=== PATIENT | male | born 1965 | race Two or more races ===

== ENCOUNTER 2017-03-12 10:50 | Inpatient (IN) | payer OTHER, MEDICAID ==
[~2017-03-12] VITALS: Ht 167.6 cm; Wt 90.9 kg
[2017-03-12 11:27] LABS: BASOPHIL % 0.6 % (0-2); PLATELET COUNT 188 x10^3mcL (130-400)
[2017-03-12 11:30] LABS: RED CELL DISTRIBUTION WIDTH 15.6 % (11.5-14.5)
--- NOTE | 2017-03-12 11:34 | NUR ---
PT PRESENTED TO ED WITH C/O TESTICULAR PAIN X 4 DAYS. PT DENIES PAIN WHEN VOIDING. PT IS AAOX4, BREATHING EVEN AND UNLABORED. PT IN NO ACUTE DISTRESS.
--- NOTE | 2017-03-12 11:35 | NUR ---
US AT BEDSIDE
[2017-03-12 11:36] LABS: CALCIUM 8.3 mg/dL (8.5-10.1); CARBON DIOXIDE 27.1 mmol/L (21-32); CREATININE SERUM 2.3 mg/dL (0.7-1.3); POTASSIUM SERUM 3.4 mmol/L (3.5-5.1)
[2017-03-12 12:04] LABS: AMPHETAMINE QUAL UR NONE DETECTED (NEG <=1000)
--- NOTE | 2017-03-12 12:09 | NUR ---
PT RESTING, IS AAOX4. PT IS IN NO ACUTE DISTRESS.
[2017-03-12 12:21] LABS: microscopic required? YES
[2017-03-12 12:22] LABS: urine erythrocyte 2+ (NEGATIVE)
--- NOTE | 2017-03-12 13:09 | NUR ---
PT RESTING, PT REPORTS CONTINUES TO EXPERIENCE PAIN. PT IN NO ACUTE DISTRESS. PT REPORTS PAIN 10/10.
--- NOTE | 2017-03-12 13:12 | NUR ---
PT REQUESTED PAIN MED, NOTIFIED DR. BUCK.
--- NOTE | 2017-03-12 13:28 | NUR ---
GAVE PT URINAL TO URINATE.
--- NOTE | 2017-03-12 14:14 | NUR ---
PT RESTING, IN NO ACUTE DISTRESS.
--- NOTE | 2017-03-12 14:24 | NUR ---
X-RAY AT BEDSIDE.
--- NOTE | 2017-03-12 14:31 | NUR ---
GAVE REPORT TO DAVID LAWRENCE AT X [phone]
--- NOTE | 2017-03-12 14:40 | NUR ---
RECEIVED PT FROM [facility] [employer], CAME IN DUE TO TESTICULAR PAIN X2 WEEKS. AAOX4. C/O DIZZINESS. NO SOB NOTED. DENIES CHEST PAIN/PRESSURE, NSR ON THE MONITOR. DENIES ABDOMINAL DISCOMFORT AT THIS TIME. ABDOMEN IS MILDLY DISTENDED BUT SOFT. C/O BURNING SENSATION ON HIS PELVIC AREA, LEFT TESTICLE AND LEFT ABDOMEN ON URINATION. SIDE RAILS UPX2. CALL LIGHT ON REACH. ENDORSED
--- NOTE | 2017-03-12 14:45 | NUR ---
DR. ANTONIO AT [facility]URSING STATION NOTIFIED OF Pt. BP 160/104, AWAITING ORDERS.
[2017-03-12 14:52] VITALS: BP 168/110
[2017-03-12 15:02] VITALS: Ht 167.6 cm; Wt 90.9 kg
[2017-03-12 15:08] LABS: AMYLASE 97 U/L (25-115); CHOLESTEROL 143 mg/dL (<200); LIPASE 175 IU/L (73-393); MAGNESIUM 1.6 mg/dL (1.8-2.4); PHOSPHOROUS 2.7 mg/dL (2.5-4.9)
[2017-03-12 15:11] LABS: CHOLESTEROL/HDL RATIO 8.4; HDL CHOLESTEROL 17 mg/dL (40-60); TRIGLYCERIDES 659 mg/dL (<150)
[2017-03-12 15:13] LABS: T3 TOTAL 1.34 ng/mL
--- NOTE | 2017-03-12 15:30 | NUR ---
Pt. ACCIDENTALLY PULLED OUT IV AT LEFT AC CATH INTACT. NEW IV LINE STARTED AT RIGHT FOREARM 22G WITH GOOD BLOOD RETURN AND Pt. TOLERATED WELL, RESUMED IVF.
[2017-03-12 15:43] LABS: FREE T4 0.89 ng/dL (0.76-1.46); FREE THYROXINE INDEX 2.1 ug/dL (1.4-4.5); T4(THYROXINE) 6.8 ug/dL (4.7-13.3)
[2017-03-12] MEDS ORDERED: TAMSULOSIN HYD0.4 M1 PO (16:12)
[2017-03-12] MEDS ORDERED: DESCOVY 200-251 EACH PO (16:12)
[2017-03-12] MEDS ORDERED: PREZCOBIX1 TAB PO (16:12)
[2017-03-12] MEDS ORDERED: FLUOXETINE HYDR20 M2 PO (16:12)
[2017-03-12] MEDS ORDERED: BACTRIM DS1 TAB PO (16:12)
--- NOTE | 2017-03-12 16:30 | NUR ---
DR. ANTONIO NOTIFIED DUE TO Pt. WITH ELEVATED BP AND PER MD WILL ORDER FLOMAX FOR ELEVATED BP AWAITING ORDERS.
[2017-03-12 16:57] VITALS: BP 160/104
--- NOTE | 2017-03-12 17:20 | NUR ---
Pt. C/O LEFT SCROTAL PAIN 10/10 SCALE. LEFT TESTICLE WITH SLIGHT SWELLING NOTED. SKIN COLOR PINK/GONZALEZ. Pt. REPORTED PAIN RADIATES FROM LEFT TESTICLE TO LOWER ABDOMEN. MORPHINE IVP ADMINISTERED WILL CONTINUE TO MONITOR.
--- NOTE | 2017-03-12 17:41 | NUR ---
DR. ANTONIO NOTIFIED MAGNESIUM LEVEL AT 1.6
--- NOTE | 2017-03-12 18:21 | NUR ---
Pt. AAOX4, RESPIRATIONS EVEN AND UNLABORED. VERBALIZED RELIEF POST MORPHINE ADMINISTRATION. TELE IN PLACE. IVF RUNNING TO IV AT [facility] PATENT AND INTACT. LEFT TESTICLE STILL WITH SWELLING NOTED. BED LOW/LOCKED. CALL LIGHT IN REACH.
--- NOTE | 2017-03-12 18:33 | NUR ---
RECHECKED Pt. BP 178/114 MAP 135 HR 79. Pt. DENIES BOATENG/CHEST PAIN/PRESSURE. DR. ANTONIO AND DR. SCOTT NOTIFIED. AWAITING ORDERS.
[2017-03-12 18:35] VITALS: BP 178/114
--- NOTE | 2017-03-12 18:37 | NUR ---
Pt. SALINE LOCKED AND LEFT FOR CT SCAN.
--- NOTE | 2017-03-12 18:59 | NUR ---
Pt. RETURNED FROM CT SCAN NO DISTRESS NOTED, RESUMED IVF.
--- NOTE | 2017-03-12 19:11 | NUR ---
ADMINISTERED APRESOLINE SLOW IVP PER EMAR, Pt. TOLERATED WELL, DENIES CHEST PAIN/PRESSURE AND ASYMPTOMATIC.
--- NOTE | 2017-03-12 20:00 | NUR ---
RECEIVED PT IN BED, RESTING QUIETLY. ALERT AND ORIENTED. DENIES HEADACHE/DIZZINESS. RESP. EVEN AND UNLABORED. ON ROOM AIR, NO DISTRESS NOTED. SR ON THE MONITOR, DENIES CP OR PRESSURE. DENIES ANY DISCOMFORT AT THIS TIME. IVF, NS AT 100ML/HR, INTACT AND INFUSING VIA LFA, SITE CLEAR. LT SCROTUM SWELLING, VOIDING FREELY. AMBULATORY. CALL LIGHT WITHIN REACH. WILL CONTINUE TO MONITOR.
[2017-03-12 20:36] VITALS: BP 135/79
--- NOTE | 2017-03-13 00:03 | NUR ---
NO COMPLAINTS NOTED AT THIS TIME. AFEBRILE AND VITAL SIGNS STABLE. IVF INTACT AND INFUSING. SITE CLEAR. DOOZING OFF AND ON. WILL CONTINUE TO MONITOR.
--- NOTE | 2017-03-13 03:27 | NUR ---
ASLEEP, EASILY AROUSABLE. NO DISTRESS NOTED. WILL CONTINUE TO MONITOR.
[2017-03-13 05:33] VITALS: BP 141/85
[2017-03-13 06:13] LABS: BASOPHIL % 0.5 % (0-2); PLATELET COUNT 168 x10^3mcL (130-400)
[2017-03-13 06:21] LABS: CALCIUM 7.9 mg/dL (8.5-10.1); CARBON DIOXIDE 22.7 mmol/L (21-32); CREATININE SERUM 2.1 mg/dL (0.7-1.3); MAGNESIUM 2.3 mg/dL (1.8-2.4); PHOSPHOROUS 3.8 mg/dL (2.5-4.9); POTASSIUM SERUM 3.7 mmol/L (3.5-5.1)
--- NOTE | 2017-03-13 06:25 | NUR ---
NO COMPLAINTS NOTED. SLEPT MOST OF THE NOC. RESP. EVEN AND UNLABORED. NO DISTRESS NOTED. AFEBRILE AND VITAL SIGNS STABLE. REMAINS SR ON THE MONITOR, DENIES CHEST PAIN OR ANY DISCOMFORT. IVF INTACT AND INFUSING WELL, SITE CLEAR. KEPT COMFORTABLE. WILL ENDORSE TO INCOMING NURSE.
[2017-03-13 06:34] LABS: RED CELL DISTRIBUTION WIDTH 15.9 % (11.5-14.5)
--- NOTE | 2017-03-13 08:00 | NUR ---
AAO TIMES 4. TELE # 6 SR. VS'S STABLE. NO SOB. LUNGS CTA. O2 SAT ON RA 98%. BS'S ACTIVE TIMES 4. FOX STRONG. IV SITE LFA CDI. TESTICLES SWOLLEN MODERATELY, LEFT TESTICLE > THAN RIGHT. I ELEVATED THEM ON A ROLLED UP TOWEL IN A PILLOW CASE AND TOLD PT TO KEEP THEM ELEVATED MUCH POSSIBLE. PT C/O HEADACHE, GAVE TYLENOL 650 MG PO AT 0749. PLEASANT, COOPERATIVE.
[2017-03-13 08:46] VITALS: BP 154/99
[2017-03-13 12:02] VITALS: BP 144/91
[2017-03-13 12:37] LABS: RED BLOOD CELLS 3.17 M/mm3 (4.52-5.90)
[2017-03-13 12:42] LABS: IRON 69 ug/dL (65-170)
[2017-03-13 12:49] LABS: TOTAL IRON BINDING CAPACITY 186 ug/dL (250-450)
[2017-03-13 17:22] VITALS: BP 124/85
--- NOTE | 2017-03-13 17:49 | NUR ---
AAO TIMES 4. NO C/O PAIN. TESTICLES/SCROTUM ELEVATED ON ROLLED TOWEL IN PILLOW CASE. NO C/O PAIN. NO SOB. IV SITE CDI. COOPERATIVE.
--- NOTE | 2017-03-13 20:00 | NUR ---
PT A/A/O X4. DENIES DIZZINESS AND HEADACHE. BREATH SOUNDS CLEAR. BREATHING EVEN AND UNLABORED ON ROOM AIR. DENIES CHEST PAIN AND PRESSURE. BOWEL SOUNDS ACTIVE. NO C/O N/V AND ABD PAIN. LEFT SCROTUM SWELLING NOTED. NO C/O TESTICULAR PAIN THUS FAR. IV INTACT ON THE LEFT FOREARM INFUSING WITH NS AT 100 ML/HR. MADE PT COMFORTABLE. PLACED CALL LIGHT WITH IN REACH. WILL CONTINUE TO MONITOR.
[2017-03-13 21:30] VITALS: BP 147/97
--- NOTE | 2017-03-13 21:48 | NUR ---
DR. BLUM NOTIFIED OF BLOOD PRESSURE OF 147/97. NO NEW ORDERED GIVEN. WILL CONTINUE TO MONITOR.
--- NOTE | 2017-03-14 01:23 | NUR ---
PT RESTING WITH EYES CLOSED. NO DISTRESS AND DISCOMFORT NOTED. WILL CONTINUE TO MONITOR.
--- NOTE | 2017-03-14 05:09 | NUR ---
PT RESTING WITH EYES CLOSED. EASILY AROUSABLE WITH VERBAL STIMULI. NO C/O TESTICULAR PAIN AND HEADACHE THUS FAR. IV INTACT AND INFUSING ORDERED. WILL ENDORSE TO THE AM NURSE ACCORDINGLY.
[2017-03-14 05:58] VITALS: BP 154/94
[2017-03-14 06:26] LABS: BASOPHIL % 0.4 % (0-2); PLATELET COUNT 170 x10^3mcL (130-400)
[2017-03-14 06:51] LABS: CALCIUM 7.6 mg/dL (8.5-10.1); CREATININE SERUM 2.1 mg/dL (0.7-1.3)
--- NOTE | 2017-03-14 08:00 | NUR ---
AAO TIMES 4. TELE # 26 SB TO SR. VS'S STABLE. NO SOB. BS'S ACTIVE TIMES 4. NO C/O PAIN. PERIPHERAL PULSES PALPABLE. NO EDEMA BLE. HAS MILD SCROTAL EDEMA, ELEVATED ON ROLLED UP TOWEL IN PILLOWCASE. IV SITE CDI. COOPERATIVE. MEDICAL ROUNDS WERE DONE AT [address] GAFFNEY AND THE MEDICINE TEAM. THE PLAN FOR TODAY IS TO SEND HIM HOME AND FOLLOW DR [facility] AT [facility].
[2017-03-14 08:47] VITALS: BP 138/91
[2017-03-14] MEDS ORDERED: LEVOFLOXACIN500 M1 PO (11:57)
[2017-03-14] MEDS ORDERED: LAC PO (12:00)
[2017-03-14] MEDS ORDERED: THERA TABS1 TAB PO (12:01)
[2017-03-14] MEDS ORDERED: PREZCOBIX1 TAB PO (12:04)
[2017-03-14] MEDS ORDERED: DESCOVY 200-251 EACH PO (12:05)
[2017-03-14] MEDS ORDERED: FLUOXETINE HYDR20 M2 PO (12:07)
[2017-03-14] MEDS ORDERED: ZES10 PO (12:08)
[2017-03-14] MEDS ORDERED: BACTRIM DS1 TAB PO (12:19)
[2017-03-14] MEDS ORDERED: TAMSULOSIN HYD0.4 M1 PO (12:20)
[2017-03-14 12:46] VITALS: BP 144/95
[2017-03-14 13:03] VITALS: BP 144/95
--- NOTE | 2017-03-14 13:52 | NUR ---
DR HOLLOWAY AWARE OF BP OF 144/95.
[2017-03-14] MEDS ORDERED: LIPI20 PO (14:17)
--- NOTE | 2017-03-14 15:06 | NUR ---
PT ULTRA SOUND KIDNEY IS COMPLETE, PT WOULD LIKE TO STAY TO OBTAIN RESULTS PRIOR TO LEAVING. I GAVE PT DISCHARGE INSTRUCTIONS. HIS IV WAS DC'D TO [facility] INTACT. PT VERBALIZED "I UNDERSTAND" TO ALL INSTRUCTIONS.
== END 2017-03-14 15:13 | disposition home or self-care (01) | DRG 727 ==
LOC: ED 10:50 → DU 13:35
PROVIDERS: Emergency Medicine; ADMIT Family Medicine
DX: N45.2 Orchitis (principal); N17.0 Acute kidney failure with tubular necrosis; E87.1 Hypo-osmolality and hyponatremia; E87.6 Hypokalemia; E83.51 Hypocalcemia; D64.9 Anemia, unspecified; Z68.32 Body mass index [BMI] 32.0-32.9, adult; Z85.828 Personal history of other malignant neoplasm of skin
CPT/HCPCS: 82962; 83880; 84439; J0360; J1956; J2270; J3475; J7030; Q0092

== ENCOUNTER 2017-04-30 18:39 | Inpatient (IN) | payer OTHER, MEDICAID ==
[~2017-04-30] VITALS: Ht 167.6 cm; Wt 98.3 kg
[~2017-04-30 18:39] MED LIST: BACTRIM DS1 TAB PO; DESCOVY 200-251 EACH PO; FLUOXETINE HYDR20 M2 PO; LAC PO; LEVOFLOXACIN500 M1 PO; LIPI20 PO; PREZCOBIX1 TAB PO; TAMSULOSIN HYD0.4 M1 PO; THERA TABS1 TAB PO; ZES10 PO
[2017-04-30 20:32] LABS: BASOPHIL % 0.5 % (0-2); PLATELET COUNT 239 x10^3mcL (130-400); RED CELL DISTRIBUTION WIDTH 14.4 % (11.5-14.5)
[2017-04-30 20:49] LABS: BILIRUBIN TOTAL 0.31 mg/dL (0.20-1.00); CALCIUM 7.9 mg/dL (8.5-10.1); CARBON DIOXIDE 21.5 mmol/L (21-32)
[2017-04-30 20:51] LABS: UA SPECIFIC GRAVITY 1.025 (1.005-1.035); microscopic required? YES; urine erythrocyte 1+ (NEGATIVE)
[2017-04-30 20:58] LABS: ALBUMIN 2.9 g/dL (3.4-5.0); TOTAL PROTEIN, SERUM 8.7 g/dL (6.4-8.2)
[2017-04-30 21:12] LABS: POTASSIUM SERUM 5.8 mmol/L (3.5-5.1)
[2017-04-30 21:17] LABS: CK-MB < 0.5 ng/mL (0-3.6); CREATINE KINASE 103 U/L (39-308)
[2017-04-30] MEDS ORDERED: METFORMIN850 M1 PO (21:46)
[2017-04-30] MEDS ORDERED: LOSARTAN POTASS25 M1 PO (21:47)
[2017-04-30 22:11] VITALS: BP 124/71
[2017-04-30 22:32] LABS: MAGNESIUM 2.1 mg/dL (1.8-2.4); PHOSPHOROUS 4.5 mg/dL (2.5-4.9)
[2017-04-30 22:43] LABS: T3 TOTAL 1.15 ng/mL
[2017-04-30 22:45] LABS: FREE T4 0.85 ng/dL (0.76-1.46); FREE THYROXINE INDEX 2.3 ug/dL (1.4-4.5); T4(THYROXINE) 8.2 ug/dL (4.7-13.3)
[2017-05-01 07:07] LABS: BASOPHIL % 0.3 % (0-2); PLATELET COUNT 194 x10^3mcL (130-400); RED CELL DISTRIBUTION WIDTH 14.3 % (11.5-14.5)
[2017-05-01 07:09] LABS: CALCIUM 7.9 mg/dL (8.5-10.1); CARBON DIOXIDE 20.3 mmol/L (21-32); CREATININE SERUM 3.7 mg/dL (0.7-1.3); POTASSIUM SERUM 4.9 mmol/L (3.5-5.1)
[2017-05-01 08:28] VITALS: BP 131/72
[2017-05-01 11:39] VITALS: BP 110/56
[2017-05-01 13:24] LABS: CHOLESTEROL/HDL RATIO 5.4
[2017-05-01 16:18] VITALS: BP 120/63
[2017-05-01 21:20] VITALS: BP 115/70
[2017-05-02 04:44] VITALS: BP 117/76
[2017-05-02 06:20] LABS: BASOPHIL % 0.5 % (0-2); PLATELET COUNT 201 x10^3mcL (130-400); RED CELL DISTRIBUTION WIDTH 14.5 % (11.5-14.5)
[2017-05-02] MEDS ORDERED: CLINDAMYCIN300 M1 PO (06:27)
[2017-05-02] MEDS ORDERED: TRE400 PO (06:28)
[2017-05-02] MEDS ORDERED: BD LACTINEX1.4 MG PO (06:29)
[2017-05-02 06:35] LABS: CALCIUM 7.8 mg/dL (8.5-10.1); CARBON DIOXIDE 23.6 mmol/L (21-32); CREATININE SERUM 2.8 mg/dL (0.7-1.3); PHOSPHOROUS 3.8 mg/dL (2.5-4.9); POTASSIUM SERUM 4.3 mmol/L (3.5-5.1)
[2017-05-02 09:26] VITALS: BP 134/80
[2017-05-02 12:14] VITALS: BP 125/79
[2017-05-02 13:04] VITALS: BP 134/80
[2017-05-02] MEDS ORDERED: CLEOCIN HCL300 MG PO (13:15)
== END 2017-05-02 14:05 | disposition home or self-care (01) | DRG 602 ==
LOC: ED 18:39 → DU 21:17
PROVIDERS: Emergency Medicine; ADMIT Family Medicine
DX: L03.116 Cellulitis of left lower limb (principal); B20 Human immunodeficiency virus [HIV] disease; N17.0 Acute kidney failure with tubular necrosis; D68.69 Other thrombophilia; E87.1 Hypo-osmolality and hyponatremia; E44.0 Moderate protein-calorie malnutrition; E11.51 Type 2 diabetes mellitus with diabetic peripheral angiopathy without gangrene; E11.42 Type 2 diabetes mellitus with diabetic polyneuropathy; E87.5 Hyperkalemia; I10 Essential (primary) hypertension; E05.90 Thyrotoxicosis, unspecified without thyrotoxic crisis or storm; R80.9 Proteinuria, unspecified; F32.9 Major depressive disorder, single episode, unspecified; N40.0 Benign prostatic hyperplasia without lower urinary tract symptoms; D63.8 Anemia in other chronic diseases classified elsewhere; E66.9 Obesity, unspecified; Z68.32 Body mass index [BMI] 32.0-32.9, adult; Z79.84 Long term (current) use of oral hypoglycemic drugs
CPT/HCPCS: 36600; 82962; 83880; 84439; 90658; J0690; J1644; J2270; J3490; J7030; Q0092

== ENCOUNTER 2017-05-17 21:21 | Inpatient (IN) | payer OTHER, MEDICAID ==
[~2017-05-17] VITALS: Ht 167.6 cm; Wt 87.5 kg
[~2017-05-17 21:21] MED LIST changes: +BD LACTINEX1.4 MG PO; +CLEOCIN HCL300 MG PO; +CLINDAMYCIN300 M1 PO; +LOSARTAN POTASS25 M1 PO; +METFORMIN850 M1 PO; +TRE400 PO
[2017-05-17 22:24] LABS: BASOPHIL % 0.5 % (0-2); PLATELET COUNT 212 x10^3mcL (130-400); RED CELL DISTRIBUTION WIDTH 14.4 % (11.5-14.5)
[2017-05-17 22:26] LABS: microscopic required? YES; urine erythrocyte 2+ (NEGATIVE)
[2017-05-17 22:46] LABS: BILIRUBIN TOTAL 0.25 mg/dL (0.20-1.00); CALCIUM 7.7 mg/dL (8.5-10.1); CARBON DIOXIDE 17.2 mmol/L (21-32); POTASSIUM SERUM 4.4 mmol/L (3.5-5.1); TOTAL PROTEIN, SERUM 7.6 g/dL (6.4-8.2)
[2017-05-17 22:50] LABS: ALBUMIN 2.1 g/dL (3.4-5.0)
[2017-05-17 22:51] LABS: CREATININE SERUM 4.7 mg/dL (0.7-1.3)
[2017-05-17] MEDS ORDERED: NOR10 PO (23:30)
[2017-05-17] MEDS ORDERED: BACTRIM DS1 TAB PO (23:30)
[2017-05-18 02:13] LABS: T3 TOTAL 0.64 ng/mL
[2017-05-18 02:15] LABS: CHOLESTEROL/HDL RATIO 8.3
[2017-05-18 02:22] VITALS: BP 113/73
[2017-05-18 02:26] LABS: FREE T4 1.06 ng/dL (0.76-1.46); T4(THYROXINE) 5.8 ug/dL (4.7-13.3)
[2017-05-18 05:05] VITALS: BP 100/59
[2017-05-18 07:24] LABS: BASOPHIL % 0.6 % (0-2); PLATELET COUNT 168 x10^3mcL (130-400)
[2017-05-18 07:26] LABS: RED CELL DISTRIBUTION WIDTH 15.1 % (11.5-14.5)
[2017-05-18 07:34] LABS: CALCIUM 7.1 mg/dL (8.5-10.1); CARBON DIOXIDE 13.7 mmol/L (21-32); POTASSIUM SERUM 4.2 mmol/L (3.5-5.1)
[2017-05-18 07:35] LABS: CREATININE SERUM 4.3 mg/dL (0.7-1.3)
[2017-05-18 09:16] VITALS: BP 110/72
[2017-05-18 11:30] VITALS: BP 102/59
[2017-05-18 17:07] VITALS: BP 103/71
[2017-05-18 17:13] VITALS: Ht 167.6 cm; Wt 87.5 kg
[2017-05-18 21:15] VITALS: BP 96/60
[2017-05-19 05:22] VITALS: BP 96/60
[2017-05-19 09:16] LABS: PLATELET COUNT 147 x10^3mcL (130-400)
[2017-05-19 09:19] VITALS: BP 94/58
[2017-05-19 09:20] LABS: RED CELL DISTRIBUTION WIDTH 15.3 % (11.5-14.5)
[2017-05-19 09:24] LABS: CALCIUM 7.4 mg/dL (8.5-10.1); CARBON DIOXIDE 13.9 mmol/L (21-32); MAGNESIUM 2.1 mg/dL (1.8-2.4); PHOSPHOROUS 5.9 mg/dL (2.5-4.9); POTASSIUM SERUM 4.1 mmol/L (3.5-5.1)
[2017-05-19 09:27] LABS: CREATININE SERUM 4.4 mg/dL (0.7-1.3)
[2017-05-19 12:07] LABS: BAND NEUTROPHIL 24 % (0-10); BASOPHIL 0 % (0-2); MONOCYTE 1 % (0-7); PLATELET MORPHOLOGY PLATELETS NORMAL; SEGMENTED NEUTROPHILS 65 % (37-75)
[2017-05-19 12:08] LABS: rbc morphology (normal/abnorm) ABNORMAL (NORMAL)
[2017-05-19 13:38] VITALS: BP 99/57
[2017-05-19 18:27] VITALS: BP 111/63
[2017-05-19 20:27] VITALS: BP 103/52
[2017-05-20 05:47] VITALS: BP 101/61
[2017-05-20 06:23] LABS: BASOPHIL % 0.5 % (0-2); PLATELET COUNT 147 x10^3mcL (130-400)
[2017-05-20 06:42] LABS: CALCIUM 7.2 mg/dL (8.5-10.1); CARBON DIOXIDE 14.9 mmol/L (21-32); MAGNESIUM 1.9 mg/dL (1.8-2.4); PHOSPHOROUS 5.5 mg/dL (2.5-4.9); POTASSIUM SERUM 4.5 mmol/L (3.5-5.1)
[2017-05-20 06:52] LABS: CREATININE SERUM 4.8 mg/dL (0.7-1.3)
[2017-05-20 06:56] LABS: RED CELL DISTRIBUTION WIDTH 15.2 % (11.5-14.5)
[2017-05-20 09:21] VITALS: BP 104/64
[2017-05-20 14:03] VITALS: BP 97/59
[2017-05-20 16:10] VITALS: BP 111/53
[2017-05-20 17:32] VITALS: BP 111/53
[2017-05-20 22:25] VITALS: BP 100/69
[2017-05-21 05:06] VITALS: BP 98/60
[2017-05-21 08:00] VITALS: BP 110/70
[2017-05-21 10:27] VITALS: BP 110/70
[2017-05-21 10:31] LABS: CALCIUM 7.5 mg/dL (8.5-10.1); CARBON DIOXIDE 17.3 mmol/L (21-32); MAGNESIUM 1.7 mg/dL (1.8-2.4); PHOSPHOROUS 4.4 mg/dL (2.5-4.9)
[2017-05-21 10:35] LABS: BASOPHIL % 0.2 % (0-2); PLATELET COUNT 161 x10^3mcL (130-400)
[2017-05-21 10:36] LABS: CREATININE SERUM 4.6 mg/dL (0.7-1.3)
[2017-05-21 10:40] LABS: RED CELL DISTRIBUTION WIDTH 15.8 % (11.5-14.5)
[2017-05-21 11:00] LABS: schistocyte (helmet cell) 2+
[2017-05-21 11:01] LABS: rbc morphology (normal/abnorm) ABNORMAL (NORMAL)
[2017-05-21 14:00] VITALS: BP 112/64
[2017-05-21 16:08] LABS: PLATELET COUNT 165 x10^3mcL (130-400)
[2017-05-21 16:29] LABS: RED CELL DISTRIBUTION WIDTH 15.6 % (11.5-14.5)
[2017-05-21 16:58] LABS: BAND NEUTROPHIL 13 % (0-10); BASOPHIL 0 % (0-2); MONOCYTE 4 % (0-7); SEGMENTED NEUTROPHILS 70 % (37-75)
[2017-05-21 17:01] LABS: rbc morphology (normal/abnorm) ABNORMAL (NORMAL); target cell (codocyte) 2+
[2017-05-21 17:02] LABS: PLATELET MORPHOLOGY PLATELETS NORMAL
[2017-05-21 18:28] VITALS: BP 109/70
[2017-05-21 21:04] VITALS: BP 141/64
[2017-05-22 06:20] VITALS: BP 111/63
[2017-05-22 06:50] LABS: BASOPHIL % 0.1 % (0-2); PLATELET COUNT 177 x10^3mcL (130-400)
[2017-05-22 06:59] LABS: RED CELL DISTRIBUTION WIDTH 15.4 % (11.5-14.5)
[2017-05-22 07:00] LABS: CALCIUM 7.4 mg/dL (8.5-10.1); CARBON DIOXIDE 16.3 mmol/L (21-32); MAGNESIUM 1.8 mg/dL (1.8-2.4); PHOSPHOROUS 4.2 mg/dL (2.5-4.9); POTASSIUM SERUM 3.9 mmol/L (3.5-5.1)
[2017-05-22 07:08] LABS: CREATININE SERUM 4.4 mg/dL (0.7-1.3)
[2017-05-22 08:15] VITALS: BP 125/66
[2017-05-22 13:06] VITALS: BP 98/62
[2017-05-22 17:28] VITALS: BP 142/65
[2017-05-22 21:44] VITALS: BP 101/69
[2017-05-23 05:49] VITALS: BP 122/76
[2017-05-23 06:25] LABS: CALCIUM 7.6 mg/dL (8.5-10.1); CARBON DIOXIDE 18.1 mmol/L (21-32); POTASSIUM SERUM 4.1 mmol/L (3.5-5.1)
[2017-05-23 07:19] LABS: CREATININE SERUM 4.5 mg/dL (0.7-1.3)
[2017-05-23 07:25] LABS: PLATELET COUNT 183 x10^3mcL (130-400)
[2017-05-23 07:28] LABS: RED CELL DISTRIBUTION WIDTH 15.4 % (11.5-14.5)
[2017-05-23 09:27] VITALS: BP 120/73
[2017-05-23 10:37] LABS: ATYPICAL LYMPH 1 %; BAND NEUTROPHIL 11 % (0-10); BASOPHIL 0 % (0-2); METAMYELOCTE 1 % (0-2); MONOCYTE 7 % (0-7); SEGMENTED NEUTROPHILS 65 % (37-75)
[2017-05-23 10:39] LABS: PLATELET MORPHOLOGY PLATELETS NORMAL; rbc morphology (normal/abnorm) ABNORMAL (NORMAL)
[2017-05-23 17:01] VITALS: BP 122/71
[2017-05-23 21:50] VITALS: BP 101/69
[2017-05-24 05:56] VITALS: BP 116/69
[2017-05-24 06:20] LABS: CALCIUM 7.7 mg/dL (8.5-10.1); CARBON DIOXIDE 16.7 mmol/L (21-32); MAGNESIUM 1.8 mg/dL (1.8-2.4); POTASSIUM SERUM 4.7 mmol/L (3.5-5.1)
[2017-05-24 06:44] LABS: BASOPHIL % 0.2 % (0-2); PLATELET COUNT 188 x10^3mcL (130-400); RED CELL DISTRIBUTION WIDTH 15.9 % (11.5-14.5)
[2017-05-24 07:09] LABS: CREATININE SERUM 4.5 mg/dL (0.7-1.3)
[2017-05-24 10:00] VITALS: BP 103/58
[2017-05-24 13:18] VITALS: BP 95/51
[2017-05-24] MEDS ORDERED: NOVAPLUS VANCO250 MG PO (16:18)
[2017-05-24] MEDS ORDERED: LAC PO (16:18)
[2017-05-24] MEDS ORDERED: FLA500I IV (16:18)
[2017-05-24 17:30] VITALS: BP 114/73
== END 2017-05-24 19:54 | DRG 371 ==
LOC: ED 21:21 → DU 05-18
PROVIDERS: Emergency Medicine; Family Medicine; Family Medicine Sports Medicine; ADMIT Student in an Organized Health Care Education/Training Program
DX: A04.72 Enterocolitis due to Clostridium difficile, not specified as recurrent (principal); B20 Human immunodeficiency virus [HIV] disease; N17.0 Acute kidney failure with tubular necrosis; E43 Unspecified severe protein-calorie malnutrition; E87.1 Hypo-osmolality and hyponatremia; R59.0 Localized enlarged lymph nodes; R31.9 Hematuria, unspecified; E11.51 Type 2 diabetes mellitus with diabetic peripheral angiopathy without gangrene; E83.39 Other disorders of phosphorus metabolism; F43.21 Adjustment disorder with depressed mood; R74.0 Nonspecific elevation of levels of transaminase and lactic acid dehydrogenase [LDH]; R16.1 Splenomegaly, not elsewhere classified; N28.1 Cyst of kidney, acquired; D63.8 Anemia in other chronic diseases classified elsewhere; E78.1 Pure hyperglyceridemia; Z68.31 Body mass index [BMI] 31.0-31.9, adult; Z79.84 Long term (current) use of oral hypoglycemic drugs
CPT/HCPCS: 82962; 83880; 84439; 87046; 87046-59; J0696; J2405; J3490; J7030; J7060; Q0092